=== PATIENT | female | born 1995 | race Two or more races ===

== ENCOUNTER 2016-07-12 16:03 | Emergency (ER) | payer OTHER ==
[~2016-07-12] VITALS: Ht 162.6 cm; Wt 85.7 kg
[2016-07-12 16:18] VITALS: BP 130/92
[2016-07-12] MEDS ORDERED: Acetaminophen 500mg (ES) tab ORAL ONE (16:30)
--- NOTE | 2016-07-12 16:38 | Emergency Room Report ---
History of Present Illness General Chief Complaint: Lower Extremity Injury Source: Patient Present Illness HPI 21-year-old female presents to emergency Department complaining of pain in the left foot times one day. Patient was at work when a pallet kole ran over her foot. Patient denies previous injury. Patient reports localized pain rated as 8/10 in severity exacerbated upon weightbearing and walking. Patient Eucerin no open wounds and reports some mild swelling and redness to the left great toe. Denies numbness tingling or loss of sensation or gross motor movements of the extremities, incontinence of bowel or bladder. Denies CP, Palpitations, LOC , AMS, dizziness, Changes in Vision, Sensation, paresthesias, or a sudden severe headache. Allergies: Uncoded Allergies: BUG BITE (Allergy, Unknown, 07/12/16) Patient History Past Medical History: see triage record Past Surgical History: none Pertinent Family History: none Last Menstrual Period: 06/11/16 Now: No Immunizations: UTD Reviewed Nursing Documentation: PMH: Agreed, PSxH: Agreed Nursing Documentation-PMH Past Medical History: No Stated History Review of Systems All Other Systems: negative except mentioned in HPI Physical Exam Vital Signs Date Time Temp Pulse Resp B/P Pulse Ox O2 Delivery O2 Flow Rate FiO2 07/12/16 16:11 98.1 96 16 130/92 99 Room Air Sp02 EP Interpretation: reviewed, normal General Appearance: no apparent distress, alert, GCS 15, non-toxic Head: normocephalic, atraumatic Eyes: bilateral eye PERRL, bilateral eye normal inspection ENT: hearing grossly normal, normal pharynx, no angioedema, normal voice Neck: full range of motion, supple/symm/no masses Respiratory: chest non-tender, lungs clear, normal breath sounds, speaking full sentences Cardiovascular #1: regular rate, rhythm, no edema Gastrointestinal: normal bowel sounds, non tender, soft, no guarding, no rebound Rectal: deferred Genitourinary: normal inspection, no CVA tenderness Musculoskeletal: back normal, gait/station normal, normal range of motion, no calf tenderness, tender - TTP to the dorsum of the left foot, in addition to the distal left great toe. , mild swelling and erythema noted. no bruising at this time. Neurologic: alert, oriented x3, responsive, motor strength/tone normal, sensory intact, speech normal Psychiatric: judgement/insight normal, memory normal, mood/affect normal, no suicidal/homicidal ideation Skin: normal color, no rash, warm/dry, well hydrated Lymphatic: no adenopathy Medical Decision Making PA Attestation Dr. lopez is my supervising Physician whom patient management has been discussed with. Diagnostic Impression: Primary Impression: Contusion of foot, left ER Course Pt. presents to the ED c/o Left foot pain. s/p pallet kole running over foot at work today. Ddx considered but are not limited to Fracture, dislocation, contusion, Sprain/ Strain/Spasm, subungual hematoma Vital signs: are WNL, pt. is afebrile H&PE are most consistent with contusion, no evidence of subungual hematoma. ORDERS: - X-ray Left foot 3 views - negative for fx, Dislocation, or significant soft tissue injury, per preliminary read in ED by Dr. Avalos ED INTERVENTIONS: - 500mg Tylenol PO DISCHARGE: At this time pt. is stable for d/c to home. Will provide printed patient care instructions, and any necessary prescriptions. Care plan and follow up instructions have been discussed with the patient prior to discharge. Last Vital Signs Date Time Temp Pulse Resp B/P Pulse Ox O2 Delivery O2 Flow Rate FiO2 07/12/16 16:18 98.1 95 16 130/92 99 Room Air Disposition: HOME, SELF-CARE Condition: Stable Referrals: NOT CHOSEN [facility]/MD,REFERRING (PCP) Departure Forms: Return to Work Return to Work Date: Jul 15, 2016 Work Restrictions: No Heavy Lifting, No Prolonged Standing Other Restrictions: light duty x 1 week. Return to Full Activity: Jul 19, 2016 Patient Instructions: Foot Contusion Additional Instructions: Take medications as directed. Follow up with PCP in 3-5 days Return sooner to ED if new symptoms occur, or current symptoms become worse. Do not drink alcohol, drive, or operate heavy machinery while taking [ ] as this may cause drowsiness. Ashlie Masters Jul 12, 2016 16:38
[2016-07-12] MEDS ORDERED: TYLENOL EXTRA500 MG ORAL (17:19)
[2016-07-12 17:28] VITALS: BP 130/92
--- NOTE | 2016-07-13 10:09 | Diagnostic Imaging Report ---
Indication: Pain Comparison: None Findings: 3 views of the left foot were obtained. No acute fractures, malalignment, erosions or periostitis are identified. Bone mineralization is within normal limits. Soft tissues are unremarkable. Impression: No acute findings
== END 2016-07-12 17:29 | disposition home or self-care (01) ==
LOC: EMR 16:29
DX: S90.32XA Contusion of left foot, initial encounter (principal); W31.9XXA Contact with unspecified machinery, initial encounter; Y93.9 Activity, unspecified; Y92.89 Other specified places as the place of occurrence of the external cause; Y99.0 Civilian activity done for income or pay
CPT/HCPCS: 99283